=== PATIENT | male | born 1965 | race Two or more races ===

== ENCOUNTER 2024-08-15 09:19 | Emergency (ER) | payer OTHER ==
[~2024-08-15] VITALS: Ht 182.9 cm; Wt 104.0 kg
[2024-08-15 09:24] VITALS: TEMP 98
[2024-08-15] MEDS: UNRESOLVED CLARIFICATION ENTRY XX STA (09:42)
[2024-08-15] MEDS: NS (Normal Saline) 0.9% 1,000 ML IV ONE (09:42)
[2024-08-15] MEDS: FAMOTIDINE IV BAG 20 MG in IV 1 EA IV ONE (09:43)
[2024-08-15 11:04] VITALS: BP 136/88; O2SAT 97
[2024-08-15] MEDS ORDERED: PRED20TA PO (13:13)
[2024-08-15] MEDS ORDERED: PEPC1TAB5 PO (13:13)
[2024-08-15] MEDS ORDERED: BENA25CA4 PO (13:15)
== END 2024-08-15 14:04 | disposition home or self-care (01) ==
LOC: M ED 09:19 → EDBD 09:19 → M ED 14:04
DX: T78.3XXA Angioneurotic edema, initial encounter (principal); I10 Essential (primary) hypertension
CPT/HCPCS: 31575; 87880; 96374; 99284; S0028